=== PATIENT | female | born 1995 | race Hispanic/Latino ===

== ENCOUNTER 2019-02-09 19:18 | Emergency (ER) | payer OTHER | END 2019-02-09 20:41 | disposition home or self-care (01) | LOC: EDH 19:18 | DX: T78.49XA Other allergy, initial encounter (principal); Z98.890 Other specified postprocedural states; X58.XXXA Exposure to other specified factors, initial encounter | CPT/HCPCS: 81025 ==

== ENCOUNTER 2019-12-30 23:56 | Emergency (ER) | payer OTHER ==
[2019-12-31] MEDS ORDERED: METOCLOPRAMIDE 10 MG/2 ML VIAL ONE (01:37)
[2019-12-31] MEDS ORDERED: ONDANSETRON HCL 4 MG/2 ML VIAL ONE (01:37)
[2019-12-31] MEDS ORDERED: HYOSCYAMINE SULFATE 0.125 MG TAB.SUBL SL ONE (01:37)
[2019-12-31] MEDS ORDERED: FAMOTIDINE/PF 20 MG/2 ML VIAL IV ONE (01:37)
[2019-12-31] MEDS ORDERED: SODIUM CHLORIDE 0.9% 1000ML 2,000 ML IV ONE (01:38)
[2019-12-31] MEDS ORDERED: SODIUM CHLORIDE 0.9% 1000ML 1,000 ML IV ONE (01:55)
== END 2019-12-31 03:24 | disposition home or self-care (01) ==
LOC: EDH 23:56
DX: E86.0 Dehydration (principal); R11.2 Nausea with vomiting, unspecified; R19.7 Diarrhea, unspecified
CPT/HCPCS: 81025; 96361; 96374; 96375; 99284; J2405; J2765; J3490; J7030 ×2

== ENCOUNTER 2022-05-11 14:36 | Emergency (ER) | payer OTHER | END 2022-05-11 16:41 | disposition left against medical advice (07) | LOC: EDH 14:36 | DX: R11.2 Nausea with vomiting, unspecified (principal); M79.10 Myalgia, unspecified site; Z53.21 Procedure and treatment not carried out due to patient leaving prior to being seen by health care provider ==